=== PATIENT | male | born 1960 | race Caucasian/White ===

== ENCOUNTER 2020-03-30 11:12 | Outpatient (CLI) | payer OTHER, SELFPAY ==
--- NOTE | ~2020-03-30 | CT_ITS ---
EXAMINATION: CT lung screening DATE: 03/30/2020 11:30 INDICATION: Personal history of nicotine dependence, prior smoker with 35 pack year history TECHNIQUE: Computed tomography (CT) of the chest was performed without intravenous contrast. The dose -length product (DLP) was 96.43 mGy-cm. Automated exposure control and iterative reconstruction techn Imonomiue were employed. COMPARISON: None FINDINGS: The lungs are free of acute opacities. There are no pulmonary nodules. There is mild emphys paula. No pathologically enlarged thoracic lymph nodes are identified. The heart size is normal. There is no pleural effusion or pneumothorax. There is mild thoracic spondylosis. IMPRESSION: 1. Lung-RADS category 1: Negative. Continue annual screening with noncontrast low-dose chest CT in 12 months. Reviewed, dictated and finalized at location A. IMPRESSION: 1. Lung-RADS category 1: Negative. Continue annual screening with noncontrast l ow-dose chest CT in 12 months.
== END 2020-03-30 11:13 | disposition home or self-care (01) ==
LOC: ANHIMG 11:17
PROVIDERS: PCP Internal Medicine; Visit Provider Nurse Practitioner
DX: Z12.2 Encounter for screening for malignant neoplasm of respiratory organs (principal); Z87.891 Personal history of nicotine dependence
CPT/HCPCS: G0297

== ENCOUNTER → 2021-04-23 01:29 | Outpatient (CLI) | payer OTHER, SELFPAY ==
[2021-04-23 17:24] LABS: SARS-CoV-2 RNA PCR Negative
== END ==
PROVIDERS: PCP Internal Medicine; Visit Provider Internal Medicine Gastroenterology
DX: Z01.812 Encounter for preprocedural laboratory examination (principal); Z20.822 Contact with and (suspected) exposure to COVID-19
CPT/HCPCS: C9803; U0003; U0005

== ENCOUNTER 2021-04-26 00:12 | Day surgery (SDC) | payer OTHER, SELFPAY ==
[2021-04-15 11:02] VITALS: BMI 20.9
[2021-04-26 09:57] VITALS: BP 107/69; PULSE 77; RESP 18; TEMP 36.6; O2SAT 99; BMI 21.7
[2021-04-26] MEDS: LACTATED RINGERS 1,000 ML 150 ML IV CONT (10:09)
--- NOTE | 2021-04-26 10:32 | WPDANESEPPF ---
Anes - Initial Pre Proc Eval Procedure: Operation Date: 04/26/21 11:00 Proposed Procedures p Screening Colonoscopy - Kulwinder Pan MD Date/Time: 04/26/21 10:32 Surgeon: Kulwinder Pan MD Pre Op Diagnosis: hx of colon polyps, neoplasm screening Patient Data Age: 60 Gender: M Height: 6 ft 1 in Weight: 74.8 kg Last Vital Signs Temp 97.8 F 04/26/21 09:57 Pulse 77 04/26/21 09:57 Resp 18 04/26/21 09:57 BP 107/69 04/26/21 09:57 Pulse Ox 99 04/26/21 09:57 Allergies Allergy/AdvReac Type Severity Reaction Status Date / Time No Known Allergies Allergy Verified 04/26/21 09:56 Home Medications Medication Instructions Recorded Confirmed Type multivitamin 1 tablet PO DAILY 09/06/19 04/15/21 History tramadol 50 mg tablet 50 mg PO Q4H PRN #180 tablet 03/26/21 04/15/21 Rx Vitamin D2 1 cap PO DAILY 04/15/21 04/15/21 History trazodone 50 mg PO HS PRN 04/15/21 04/15/21 History Patient hx anesthesia problems: none Family hx anesthesia problems: none PMFSH Past Medical History Medical History (Updated 04/09/21 @ 12:40 by Timmy Garrido APRN) History of colon polyps History of tobacco abuse Osteoarthritis Surgical History Surgical History History of hemorrhoidectomy History of inguinal hernia repair Family History Family History Father Family history of coronary artery disease Cerebrovascular accident Other Acute myocardial infarction Family history of heart disease in male family member before age 55 Social History Social History (Updated 04/09/21 @ 09:07 by Alaina Grover MA) Smoking packs per day: 1 Smoking cigarettes per day: 20.0 Years smoked: 20 Smoking pack-years: 20.00 Smoking status: Former smoker Tobacco type: cigarettes Second hand tobacco smoke exposure: Yes Smoking end date: 04/14/18 Alcohol intake: never Substance use: never Substance use type: does not use Living arrangements: with family Spiritual care concerns: No Anes - Eval Final PreProcedure Day of Procedure 04/26/21 10:32 Patient weight: normal Heart: regular rate and rhythm Lungs: clear to auscultation Airway: Mallampati scale class II Neurological: alert and oriented Last oral intake: >/= 8 hours ASA classification: II Emergent: no Anesthetic plan: proceed Anesthesia type and monitoring: general GIVS and standard monitoring Informed Consent: The patient's anesthetic plan and its attendant risks and benefits were discussed with the patient/family/POA. Questions were solicited and answers provided to the satisfaction of the patient/family/POA.
--- NOTE | 2021-04-26 10:36 | P.HP_ITS ---
History of Present Illness History of Present Illness Consent: Risks, benefits, and alternatives have been discussed and questions answered. Patient agrees to proceed with procedure. Chief complaint: hx of colon polyps, neoplasm screening Narrative: Elliot Mcclendon is a 60 year old male here for colon cancer screening. He has a history of polyps Review of Systems Review of Systems: All systems reviewed & are unremarkable except as noted in HPI and below PMFSH Past Medical History Medical History History of colon polyps History of tobacco abuse Osteoarthritis Surgical History Surgical History History of hemorrhoidectomy History of inguinal hernia repair Family History Family History Father Family history of coronary artery disease Cerebrovascular accident Other Acute myocardial infarction Family history of heart disease in male family member before age 55 Social History Social History Smoking packs per day: 1 Smoking cigarettes per day: 20.0 Years smoked: 20 Smoking pack-years: 20.00 Smoking status: Former smoker Tobacco type: cigarettes Second hand tobacco smoke exposure: Yes Smoking end date: 04/14/18 Alcohol intake: never Substance use: never Substance use type: does not use Living arrangements: with family Spiritual care concerns: No Meds Home Medications and Allergies Home Medications Medication Instructions Recorded Confirmed Type multivitamin 1 tablet PO DAILY 09/06/19 04/15/21 History tramadol 50 mg tablet 50 mg PO Q4H PRN #180 tablet 03/26/21 04/15/21 Rx Vitamin D2 1 cap PO DAILY 04/15/21 04/15/21 History trazodone 50 mg PO HS PRN 04/15/21 04/15/21 History Allergies Allergy/AdvReac Type Severity Reaction Status Date / Time No Known Allergies Allergy Verified 04/26/21 09:56 Vital Signs Vital Signs - 24 hr 04/26/21 09:57 Temperature 36.6 C Pulse Rate 77 Respiratory Rate 18 Blood Pressure 107/69 Pulse Oximetry 99 Exam Resp: Auscultation: clear to auscultation bilaterally Cardio: Rate: regular rate Rhythm: regular rhythm GI: GI Palp: Yes Soft to palpation and No Tenderness to palpation present (GI) Assessment and Plan Assessment and plan (1) Colon cancer screening: Code(s): Z12.11 - Encounter for screening for malignant neoplasm of colon Status: Acute Assessment and Plan: Colonoscopy with possible biopsy or polypectomy or cautery or injection of s ubstances.
[2021-04-26 11:05] VITALS: BP 111/68; PULSE 77; RESP 21; O2SAT 99
[2021-04-26 11:15] VITALS: BP 105/69; PULSE 70; RESP 25; O2SAT 99
[2021-04-26 11:25] VITALS: BP 101/70; PULSE 70; RESP 25; O2SAT 99
[2021-04-26 11:35] VITALS: BP 110/70; PULSE 72; RESP 20; O2SAT 99
== END 2021-04-26 11:43 | disposition home or self-care (01) ==
PROVIDERS: PCP Internal Medicine; Visit Provider Internal Medicine Gastroenterology
PROC: 0DJD8ZZ Inspection of Lower Intestinal Tract, Via Natural or Artificial Opening Endoscopic (ICD-10-PCS; CPT 45378; principal; 2021-04-26 11:00)
DX: Z12.11 Encounter for screening for malignant neoplasm of colon (principal); K63.5 Polyp of colon; K57.30 Diverticulosis of large intestine without perforation or abscess without bleeding; M19.90 Unspecified osteoarthritis, unspecified site; Z87.891 Personal history of nicotine dependence
CPT/HCPCS: 45385; J2704; J7120

== ENCOUNTER 2021-08-31 10:12 | Emergency (ER) | payer OTHER, SELFPAY ==
--- NOTE | ~2021-08-31 | XR_ITS ---
EXAMINATION: XR wrist LT min 3V DATE: 08/31/2021 10:30 INDICATION: Left wrist pain TECHNIQUE: Posteroanterior, ulnar deviation, oblique, and lateral views of the left wrist were obtain ed. COMPARISON: None available FINDINGS: There is no fracture, dislocation, or subluxation. The bones, soft tissues, and joint space s are normal. IMPRESSION: 1. No acute osseous abnormality. Reviewed, dictated and finalized at location A.
[2021-08-31 10:19] VITALS: BP 106/79; PULSE 81; RESP 16; TEMP 36.8; O2SAT 100
--- NOTE | 2021-08-31 10:24 | ED.UPPEXIN ---
HPI - Extremity Injury (Upper) General Chief Complaint: Extremity Injury, Upper Stated Complaint: lt wrist injury Time Seen by Provider: 08/31/21 10:20 Source: patient, RN notes reviewed and old records reviewed Mode of arrival: ambulatory Limitations: no limitations History of Present Illness HPI narrative: 61-year-old male who denies any past medical or surgical history presents to the [facility] with dorsal aspect left wrist pain after he tripped and fell over a curb last night approximately 1915. FOOSH injury. 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 Capillary refill neurovascular intact. Had taken Tylenol last night. Pain is worse with movements. Denies hitting head. No loss of consciousness. No chest pain or abdominal pain. Related Data Home Medications Medication Instructions Recorded Confirmed No Home Medications 08/31/21 08/31/21 Allergies Allergy/AdvReac Type Severity Reaction Status Date / Time No Known Allergies Allergy Verified 04/26/21 09:56 Review of Systems Review of Systems: All systems reviewed & are unremarkable except as noted in HPI and below Constitutional: Constitutional: Reports no additional constitutional complaints, Denies chills and Denies fever(s) Eyes: Eyes: Reports no additional eye complaints ENT: Reports system reviewed and no additional complaints, except as documented Cardiovascular: Cardiovascular: Reports no additional cardiovascular complaints Respiratory: Respiratory: Reports no additional respiratory complaints Gastrointestinal: Gastrointestinal: Reports no additional gastrointestinal complaints Musculoskeletal: Musculoskeletal: Reports as per HPI Comments: Left wrist pain dorsal aspect Integumentary/Breasts: Skin/Breast: Reports system reviewed and no additional complaints, except as docu Neurologic: Reports system reviewed and no additional complaints, except as documented Psychiatric: Psychiatric: Reports no additional psychiatric complaints Allergic/Immunologic: Allergic/Immunologic: Reports no additional allergic/immunologic complaints [facility] Past Medical History Medical History (Updated 08/31/21 @ 12:09 by Beverly Castellanos) Gastric ulcer History of colon polyps History of tobacco abuse Osteoarthritis Surgical History Surgical History History of hemorrhoidectomy History of inguinal hernia repair Family History Family History Father Family history of coronary artery disease Cerebrovascular accident Other Acute myocardial infarction Family history of heart disease in male family member before age 55 Social History Social History Smoking packs per day: 1 Smoking cigarettes per day: 20.0 Years smoked: 20 Smoking pack-years: 20.00 Smoking status: Former smoker Tobacco type: cigarettes Second hand tobacco smoke exposure: Yes Smoking end date: 04/14/18 Alcohol intake: never Substance use: never Substance use type: does not use Spiritual care concerns: No Comments At the time of my signature, I reviewed and agree with the nursing past medical, surgical, social, and family history. There is no relevant family history pertinent to the patient complaint. Exam Const: General: healthy appearing, no acute distress and alert Nutritional Appearance: well nourished Orientation/consciousness: patient oriented x3 Limitations: no limitations HENMT: Head: normal to inspection Eyes: Conjunctivae: conjunctivae normal Pupils: Equal, round and reactive pupils present Neck: Neck: normal visual inspection, no lymphadenopathy and no meningeal signs Chest: Chest palpation & inspection: normal inspection of the chest Resp: Effort & Inspection: normal respiratory effort Cardio: Rate: regular rate Rhythm: regular rhythm Back/Spine/Pelvis: Back: no CVA tenderness Skin: General skin exam: normal c
== END 2021-08-31 10:53 | disposition home or self-care (01) ==
PROVIDERS: Emergency Provider Nurse Practitioner; PCP Internal Medicine
DX: S63.502A Unspecified sprain of left wrist, initial encounter (principal); W18.00XA Striking against unspecified object with subsequent fall, initial encounter; M19.90 Unspecified osteoarthritis, unspecified site; Z87.891 Personal history of nicotine dependence
CPT/HCPCS: 73110; 99213; G0463